=== PATIENT | female | born 1950 | race Caucasian/White ===

== ENCOUNTER → 2024-01-29 15:47 | Outpatient (REF) | payer OTHER, SELFPAY | LOC: RAD 15:47 | PROVIDERS: ATTENDING PHYSICIAN Nurse Practitioner Family | DX: R05.1 Acute cough (principal); J06.9 Acute upper respiratory infection, unspecified | CPT/HCPCS: 71046 ==

== ENCOUNTER → 2024-02-21 13:48 | Outpatient (REF) | payer OTHER, SELFPAY ==
[2024-02-21 14:37] LABS: % Basophils 0.9 % (0-2); % Eosinophils 3.4 % (0-6); % Immature Granulocytes 0.4 % (0-0.5); % Lymphocytes 22.5 % (20.5-51.1); % Monocytes 8.5 % (1.7-9.3); % Neutrophils 64.3 % (42.2-75.2); Absolute Basophils 0.1 10^3/uL (0-0.2); Absolute Eosinophils 0.2 10^3/uL (0-0.7); Absolute Lymphocytes 1.5 10^3/uL (1.2-3.4); Absolute Monocytes 0.6 10^3/uL (0.1-0.6); Absolute Neutrophils 4.4 10^3/uL (1.4-6.5); Hematocrit 41.7 % (37.0-47.0); Hemoglobin 14.5 g/dL (12.0-16.0); Mean Corp Hgb Conc. 34.8 g/dL (33.0-37.0); Mean Corpuscular Hgb 31.5 pg (27.0-31.0); Mean Corpuscular Volume 90.5 fL (81.0-99.0); Mean Platelet Volume 10.4 fL (7.4-10.4); Nucleated Red Blood Cells % 0 %; Platelet Count 202 10^3/uL (130-400); Red Blood Cell Count 4.61 10^6/uL (4.20-5.40); Red Cell Dist. Width 13.5 % (11.5-14.5); White Blood Cell Count 6.8 10^3/uL (4.8-10.8)
[2024-02-21 14:54] LABS: C-Reactive Protein < 5.00 mg/L (0.0-10.00)
[2024-02-21 15:44] LABS: ALT (SGPT) 30 U/L (0-35); AST (SGOT) 35 U/L (14-36); Albumin 4.3 g/dl (3.5-5.0); Alkaline Phosphatase 70 U/L (38-126); Blood Urea Nitrogen 12 mg/dl (7-17); Calcium 9.1 mg/dl (8.4-10.2); Carbon Dioxide 25 mmol/L (22-30); Chloride 107 mmol/L (98-107); Glucose 81 mg/dl (70-99); HDL Cholesterol 49 mg/dl; LDL Cholesterol, Calculated 101 mg/dl; Potassium 4.1 mmol/L (3.5-5.1); Sodium 138 mmol/L (135-145); Total Bilirubin 0.7 mg/dl (0.2-1.3); Total Cholesterol 171 mg/dl (50-199); Total Protein 7.2 g/dl (6.3-8.2); Triglyceride 107 mg/dl (10-149); Very Low Density Lipoprotein 21 mg/dl (0-30); eGFR > 60.00
[2024-02-23 14:29] LABS: IgG Subclass 4 3 mg/dL (1-123)
[2024-02-24 07:32] LABS: Alternaria tenuis <0.10 kU/L (<=0.34); Aspergillus fumigatus <0.10 kU/L (<=0.34); Bermuda Grass 0.12 kU/L (<=0.34); Birch Tree 0.94 kU/L (<=0.34); Cat Epithelium/Dander <0.10 kU/L (<=0.34); Common Pigweed <0.10 kU/L (<=0.34); Common/Short Ragweed 1.65 kU/L (<=0.34); Dermatophagoides farinae 0.55 kU/L (<=0.34); Dermatophagoides pteronyssinus 0.74 kU/L (<=0.34); Dog Dander <0.10 kU/L (<=0.34); Elm Tree 0.16 kU/L (<=0.34); German Cockroach <0.10 kU/L (<=0.34); Hormodendrum <0.10 kU/L (<=0.34); IgE 13 kU/L (<=214); Mountain Cedar Tree <0.10 kU/L (<=0.34); Mouse Epithelium <0.10 kU/L (<=0.34); Mucor racemosus <0.10 kU/L (<=0.34); Mugwort Weed <0.10 kU/L (<=0.34); Oak Tree 0.47 kU/L (<=0.34); Penicillium notatum <0.10 kU/L (<=0.34); Sheep Sorrel Weed 0.14 kU/L (<=0.34); Sycamore Tree 0.14 kU/L (<=0.34); Walnut Tree 1.05 kU/L (<=0.34); White Ash Tree 0.44 kU/L (<=0.34); White Mulberry Tree <0.10 kU/L (<=0.34)
== END ==
LOC: OLABPV 13:48
PROVIDERS: ATTENDING PHYSICIAN Internal Medicine Geriatric Medicine
DX: E78.2 Mixed hyperlipidemia (principal); E55.9 Vitamin D deficiency, unspecified; M81.0 Age-related osteoporosis without current pathological fracture; Z13.31 Encounter for screening for depression; J98.8 Other specified respiratory disorders; R06.2 Wheezing; R05.1 Acute cough
CPT/HCPCS: 36415; 80053; 80061; 82785; 82787; 85025; 86003; 86140

== ENCOUNTER → 2024-03-19 08:27 | Outpatient (REF) | payer OTHER, SELFPAY | LOC: RSP 08:27 | PROVIDERS: ATTENDING PHYSICIAN Internal Medicine Geriatric Medicine | DX: J98.8 Other specified respiratory disorders (principal); R06.2 Wheezing; R05.1 Acute cough | CPT/HCPCS: 94727; 94729; 88738; 94010 ==

== ENCOUNTER → 2024-05-30 11:21 | Outpatient (REF) | payer OTHER, SELFPAY | LOC: WDC 11:21 | PROVIDERS: ATTENDING PHYSICIAN Obstetrics & Gynecology; FAMILY PHYSICIAN Internal Medicine Geriatric Medicine | DX: Z12.31 Encounter for screening mammogram for malignant neoplasm of breast (principal) | CPT/HCPCS: 77063; 77067 ==

== ENCOUNTER → 2024-12-31 11:11 | Outpatient (REF) | payer OTHER, SELFPAY ==
[2024-12-31 11:37] LABS: % Basophils 0.7 % (0-2); % Eosinophils 3.1 % (0-6); % Immature Granulocytes 0.7 % (0-0.5); % Lymphocytes 14.6 % (20.5-51.1); % Monocytes 8.1 % (1.7-9.3); % Neutrophils 72.8 % (42.2-75.2); Absolute Basophils 0.1 10^3/uL (0-0.2); Absolute Eosinophils 0.3 10^3/uL (0-0.7); Absolute Immature Granulocytes 0.1 10^3/uL (0-0.05); Absolute Lymphocytes 1.3 10^3/uL (1.2-3.4); Absolute Monocytes 0.7 10^3/uL (0.1-0.6); Absolute Neutrophils 6.5 10^3/uL (1.4-6.5); Hematocrit 42.2 % (37.0-47.0); Hemoglobin 14.9 g/dL (12.0-16.0); Mean Corp Hgb Conc. 35.3 g/dL (33.0-37.0); Mean Corpuscular Volume 90.6 fL (81.0-99.0); Nucleated Red Blood Cells % 0 %; Platelet Count 245 10^3/uL (130-400); Red Blood Cell Count 4.66 10^6/uL (4.20-5.40); Red Cell Dist. Width 13.3 % (11.5-14.5)
[2024-12-31 11:55] LABS: ALT (SGPT) 28 U/L (0-35); AST (SGOT) 27 U/L (14-36); Albumin 4.4 g/dl (3.5-5.0); Alkaline Phosphatase 74 U/L (38-126); Blood Urea Nitrogen 10 mg/dl (7-17); Calcium 9.1 mg/dl (8.4-10.2); Carbon Dioxide 26 mmol/L (22-30); Chloride 108 mmol/L (98-107); Glucose 99 mg/dl (70-99); HDL Cholesterol 51 mg/dl; LDL Cholesterol, Calculated 103 mg/dl; Potassium 4.3 mmol/L (3.5-5.1); Sodium 142 mmol/L (135-145); Total Bilirubin 0.9 mg/dl (0.2-1.3); Total Cholesterol 182 mg/dl (50-199); Triglyceride 140 mg/dl (10-149); Very Low Density Lipoprotein 28 mg/dl (0-30); eGFR > 60.00
[2024-12-31 11:57] LABS: Vitamin D, 25-OH*** 44.6 ng/mL (30-80)
[2024-12-31 12:07] LABS: Urine Albumin Negative (Neg - Trace); Urine Bilirubin Negative (Negative); Urine Character Clear (Clear); Urine Color Yellow; Urine Glucose Negative (Negative); Urine Ketone Negative (Negative); Urine Leukocyte 3+ (Negative); Urine Nitrite Negative (Negative); Urine Occult Blood Negative (Negative); Urine Urobilinogen Negative (Neg - 1+)
[2024-12-31 12:43] LABS: Urine Mucus Few; Urine Squamous Cell >30 /LPF (Few)
[2024-12-31 12:44] LABS: Urine Amorphous Seen
[2024-12-31 12:45] LABS: Urine Bacteria Few (Negative); Urine White Cell 30-40 /HPF (0-5)
== END ==
LOC: OLABPV 11:11
PROVIDERS: ATTENDING PHYSICIAN Internal Medicine Geriatric Medicine
DX: E78.2 Mixed hyperlipidemia (principal); E55.9 Vitamin D deficiency, unspecified; M81.0 Age-related osteoporosis without current pathological fracture; J98.8 Other specified respiratory disorders; R06.2 Wheezing; Z13.89 Encounter for screening for other disorder; J30.1 Allergic rhinitis due to pollen
CPT/HCPCS: 36415; 80053; 80061; 81003; 81015; 82306; 85025

== ENCOUNTER → 2025-04-17 09:57 | Outpatient (REF) | payer OTHER, SELFPAY ==
[2025-04-17 18:03] LABS: Urine Character Clear (Clear)
== END ==
LOC: OLABPV 09:57
PROVIDERS: ATTENDING PHYSICIAN Internal Medicine Geriatric Medicine
DX: R31.29 Other microscopic hematuria (principal)
CPT/HCPCS: 81003

== ENCOUNTER → 2025-04-19 10:48 | Outpatient (REF) | payer OTHER, SELFPAY | LOC: RAD 10:48 | PROVIDERS: ATTENDING PHYSICIAN Internal Medicine Critical Care Medicine; FAMILY PHYSICIAN Internal Medicine Geriatric Medicine | DX: R91.1 Solitary pulmonary nodule (principal) | CPT/HCPCS: 71250 ==

== ENCOUNTER → 2025-07-07 12:42 | Outpatient (REF) | payer OTHER, SELFPAY | LOC: RAD 12:42 | PROVIDERS: ATTENDING PHYSICIAN Internal Medicine Rheumatology; FAMILY PHYSICIAN Internal Medicine Geriatric Medicine; REFERRING PHYSICIAN Obstetrics & Gynecology | DX: M81.0 Age-related osteoporosis without current pathological fracture (principal) | CPT/HCPCS: 77080 ==